=== PATIENT | female | born 1990 | race Two or more races ===

== ENCOUNTER 2020-08-21 20:52 | Outpatient (CLI) | payer SELFPAY | END 2020-08-21 20:53 | disposition home or self-care (01) | LOC: COV 20:52 | PROVIDERS: ATTEND Family Medicine | DX: Z20.822 Contact with and (suspected) exposure to COVID-19 (principal) ==

== ENCOUNTER 2020-10-05 16:38 | Outpatient (CLI) | payer SELFPAY | END 2020-10-05 16:39 | disposition home or self-care (01) | LOC: COV 16:38 | PROVIDERS: ATTEND Family Medicine | DX: Z20.822 Contact with and (suspected) exposure to COVID-19 (principal) ==